=== PATIENT | female | born 2000 | race African-American/Black ===

== ENCOUNTER 2024-06-23 16:07 | Emergency (ER) | payer MEDICAID ==
[~2024-06-23] VITALS: Ht 170.2 cm; Wt 106.6 kg
[2024-06-23 17:11] VITALS: BP 141/82; TEMP 98.1; O2SAT 99
[2024-06-23] MEDS ORDERED: AMOX500C2 PO (18:22)
== END 2024-06-23 18:46 | disposition home or self-care (01) ==
LOC: ER 16:16
DX: R07.0 Pain in throat (principal); Z20.822 Contact with and (suspected) exposure to COVID-19
CPT/HCPCS: 86403-TC